=== PATIENT | female | born 1960 | race African-American/Black ===

== ENCOUNTER 2023-03-04 11:55 | Outpatient (CLI) | payer OTHER, SELFPAY ==
[2023-03-04 12:47] LABS: Alanine Aminotransferase 28 U/L (6-35); Aspartate Amino Transferase 33 U/L (14-36)
== END 2023-03-04 11:56 | disposition home or self-care (01) ==
LOC: ANHLAB 12:02
PROVIDERS: Visit Provider Podiatrist Foot & Ankle Surgery
DX: B35.1 Tinea unguium (principal)
CPT/HCPCS: 36415; 84450; 84460